=== PATIENT | female | born 1985 | race Hispanic/Latino ===

== ENCOUNTER 2017-09-21 19:04 | Emergency (ER) | payer OTHER, MEDICAID ==
[2017-09-21 19:16] VITALS: BP 121/88
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
[2017-09-21] MEDS ORDERED: ULTRAM PO ONE (21:39)
== END 2017-09-21 22:50 | disposition home or self-care (01) ==
LOC: ED 19:04
DX: S52.502A Unspecified fracture of the lower end of left radius, initial encounter for closed fracture (principal); S52.602A Unspecified fracture of lower end of left ulna, initial encounter for closed fracture; V49.59XA Passenger injured in collision with other motor vehicles in traffic accident, initial encounter; Y93.89 Activity, other specified; Y92.89 Other specified places as the place of occurrence of the external cause; Y99.8 Other external cause status

== ENCOUNTER 2017-10-24 05:45 | Day surgery (SDC) | payer MEDICAID, OTHER ==
[2017-10-24] MEDS ORDERED: ZOFRAN IV PRN (06:52)
[2017-10-24] MEDS ORDERED: NACL BACTERIOSTATIC INFILTRATI ONE (06:52)
[2017-10-24] MEDS ORDERED: PERCOCET 5/325 PO PRN (06:52)
[2017-10-24] MEDS ORDERED: MORPHINE IV PRN (06:52)
--- NOTE | 2017-10-24 06:52 | Anesthesia Consultation ---
Anesthesia Consult and Med Hx Date of service: 10/24/17 - Airway Anesthetic Teeth Evaluation: Good ROM Head & Neck: Adequate Mental/Hyoid Distance: Adequate Mallampati Class: Class I Intubation Access Assessment: Good - Pulmonary Exam CTA: Yes - Cardiac Exam Cardiac Exam: RRR - Pre-Operative Health Status ASA Pre-Surgery Classification: ASA3 Proposed Anesthetic Plan: General - Pulmonary Hx Smoking: No Hx Asthma: No Hx Sleep Apnea: No (ANITHA PRE SCREEN LOW RISK) - Cardiovascular System Hx Hypertension: No Hx Heart Murmur: No - Central Nervous System Hx Seizures: No Hx Psychiatric Problems: Yes (ALSO HAS ASPERGER'S, developmental delay, ADD ) - Hematic Hx Anemia: Yes (PAST HISTORY) - Other Systems Hx Alcohol Use: No Hx Substance Use: No Hx Cancer: No
--- NOTE | 2017-10-24 06:52 | Anesthesia Day of Surgery ---
Anesthesia Day of Surgery - Day of Surgery Patient Examined: Yes Patient H&P Reviewed: Yes Patient is NPO: Yes
[2017-10-24] MEDS ORDERED: ANCEF/STERILE WATER 2 GM/20 ML IV NR (07:00)
[2017-10-24] MEDS ORDERED: PEPCID PO NR (07:00)
[2017-10-24] MEDS ORDERED: VERSED IV NR (07:00)
[2017-10-24] MEDS ORDERED: NACL 0.9% 1000 ML 1,000 ML IV SCH (07:00)
[2017-10-24] MEDS ORDERED: MARCAINE 0.5% INFILTRATI ONE ×2 (07:24→08:32)
[2017-10-24] MEDS ORDERED: NEOSPORIN GU IR ONE (07:25)
[2017-10-24] MEDS ORDERED: DIPRIVAN 10 MG/ML IV ONE (07:26)
[2017-10-24] MEDS ORDERED: DILAUDID ONE ×2 (07:27→09:49)
[2017-10-24] MEDS ORDERED: XYLOCAINE MPF 2% ONE (07:27)
[2017-10-24] MEDS ORDERED: NACL 0.9% IR ONE (08:32)
[2017-10-24] MEDS ORDERED: ZOFRAN ONE (08:40)
[2017-10-24] MEDS ORDERED: DECADRON ONE (08:40)
[2017-10-24] MEDS ORDERED: TORADOL ONE (08:41)
[2017-10-24] MEDS ORDERED: VERSED IV PRN (10:05)
--- NOTE | 2017-10-24 13:08 | Procedure Note ---
Date of procedure: 10/24/17 Pre-op diagnosis: displaced left distal radius fracture Post-op diagnosis: same Procedure: Open reduction internal fixation left distal radius Procedure The patient was brought to the OR placed in the OR table in supine position following induction and intubation by anesthesia the patient's left upper extremity was prepped and draped in the usual sterile manner, procedure was done to identify the patient and the correct operative site. The arm was exsanguinated followed by inflation of the pneumatic tourniquet to 250 mmHg. A volar incision was made over the distal radius this was taken down sharply through skin and subcutaneous the flexor carpi radialis tendon was identified next using periosteal elevator the quadratus tendon was released from the distal radius this brought us down to the fracture site the patient was noted to have early callus formation with a displaced fracture of the radial styloid bleeding noted in the operative site and AP and lateral view was obtained to get a better view of the fracture site following this the fracture was then manipulated into a more reduced position and held in place by way of K wire fixation next a Biomet distal locking plate was applied to the radius and secured by way of multiple screws into the distal fragment as well as the proximal portion of the radius AP and lateral views were obtained and showed good reduction at the fracture site as well as placement of the hardware the wound was then copiously irrigated and was closed in a standard routine fashion Marcaine was injected into the operative site and soft tissue to help with postoperative pain next 2. Dressings were applied as well as a well-padded volar splint the patient tolerated the procedure there were no complications she was sent to postanesthesia recovery in stable condition Anesthesia: GETA Surgeon: CHANCE ZAMORA ([employer] 1st customer relations assistant) Estimated blood loss: minimal Pathology: none Condition: stable Disposition: PACU
--- NOTE | 2017-10-24 15:22 | Post Anesthesia Evaluation ---
- Post Anesthesia Evaluation Patient Participated: Yes Airway Patent: Yes Stable Respiratory Function: Yes Nausea/Vomiting: No Temp > 96.8F: Yes Pain Manageable: Yes Adequeate Hydration: Yes Anesthesia Complications: No Block Receding Appropriately: Not Applicable Patient on Ventilator: No
[2017-10-24 21:33] VITALS: BP 137/72
--- NOTE | 2017-10-25 09:21 | XRay Report ---
Left wrist 2 fluoroscopic images. History: ORIF left wrist/left radius fracture. Findings: There is internal fixation noted of distal radius fracture with plate and screws. Stable hardware. Satisfactory alignment. No dislocation the carpal bones. Impression: Stable fixation.
== END 2017-10-24 13:12 | disposition home or self-care (01) ==
LOC: OR 05:45
PROVIDERS: ATTEND Orthopaedic Surgery
DX: S52.512A Displaced fracture of left radial styloid process, initial encounter for closed fracture (principal); Z79.899 Other long term (current) drug therapy; V46.6XXA Car passenger injured in collision with other nonmotor vehicle in traffic accident, initial encounter; Y93.89 Activity, other specified; Y92.89 Other specified places as the place of occurrence of the external cause
CPT/HCPCS: 25607; 73100; 81025; 82962; C1713; J0690; J1100; J1170; J1885; J2250; J2405; J2704; J7030